=== PATIENT | female | born 1990 | race American Indian/Alaskan Native ===

== ENCOUNTER 2021-08-25 16:55 | Outpatient (CLI) | payer MEDICAID ==
[2021-08-25 17:23] VITALS: BP 106/64
[2021-08-25 18:00] LABS: Hematocrit 27.3 % (30.3-42.9); Hemoglobin 9.6 gm/dl (10.1-14.3); Mean Corpuscular HGB Conc 35 % (30-34); Mean Corpuscular Volume 83 fl (79-97); Platelet Count 182 K/mm3 (140-440); Red Blood Count 3.31 M/mm3 (3.65-5.03); Red Cell Distribution Width 13.8 % (13.2-15.2)
[2021-08-25 18:17] LABS: Bacteria,Urine 2+ /HPF (Negative); Bilirubin,Urine NEG (Negative); Blood,Urine NEG (Negative); Color,Urine Yellow (Yellow); Mucus,Urine 2+ /HPF; Urobilinogen,Urine < 2.0 mg/dL (<2.0)
[2021-08-25 18:23] LABS: Alanine Aminotransferase 33 units/L (7-56); Albumin 3.4 g/dL (3.9-5); Blood Urea Nitrogen 6 mg/dL (7-17); Calcium 8.6 mg/dL (8.4-10.2); Hemolysis Index 0
[2021-08-25 18:42] LABS: BUN/Creatinine Ratio 15
[2021-08-25] MEDS ORDERED: LACTATED RINGERS 500 ML IV ONE (18:45)
[2021-08-25] MEDS ORDERED: ACETAMINOPHEN 500 MG TAB PO ONE (20:01)
== END 2021-08-25 20:11 | disposition left against medical advice (07) ==
LOC: TRG 16:55 → APU 16:57 → TRG 20:11
PROVIDERS: ATTEND Obstetrics & Gynecology
DX: Z34.93 Encounter for supervision of normal pregnancy, unspecified, third trimester (principal); Z3A.28 28 weeks gestation of pregnancy
CPT/HCPCS: 36415; 80053; 81001; 85027; J7120

== ENCOUNTER 2021-09-22 11:15 | Outpatient (CLI) | payer MEDICAID | END 2021-09-22 14:38 | disposition home or self-care (01) | LOC: LAB 11:15 → APU 14:09 → LAB 14:38 | PROVIDERS: ATTEND Obstetrics & Gynecology | DX: O26.893 Other specified pregnancy related conditions, third trimester (principal); O13.4 Gestational [pregnancy-induced] hypertension without significant proteinuria, complicating childbirth; O99.013 Anemia complicating pregnancy, third trimester; D64.9 Anemia, unspecified; Z67.31 Type AB blood, Rh negative; Z3A.32 32 weeks gestation of pregnancy | CPT/HCPCS: 86850; 86900; 86901; 96372; J2790 ==